=== PATIENT | male | born 1955 | race Two or more races ===

== ENCOUNTER 2019-12-21 09:15 | Inpatient (IN) | payer OTHER ==
[~2019-12-21] VITALS: Ht 170.2 cm; Wt 70.8 kg
[2019-12-21] MEDS ORDERED: TAMS0.4C PO (12:44)
[2019-12-21] MEDS ORDERED: PRILOSEC OTC20 MG PO (12:44)
== END 2019-12-30 12:45 | disposition home or self-care (01) | DRG 708 ==
LOC: O/R 12-28 06:10 → SURH 12-28 07:00 → SURG 12-28 14:11
PROVIDERS: ADMIT Urology; ATTEND Urology
PROC: 07TC0ZZ Resection of Pelvis Lymphatic, Open Approach (ICD-10-PCS; 2019-12-28)
PROC: 0VT00ZZ Resection of Prostate, Open Approach (ICD-10-PCS; principal; 2019-12-28 07:00)
DX: C61 Malignant neoplasm of prostate (principal); Z20.828 Contact with and (suspected) exposure to other viral communicable diseases

== ENCOUNTER 2020-01-13 11:49 | Outpatient (CLI) | payer OTHER ==
[~2020-01-13 11:49] MED LIST: PRILOSEC OTC20 MG PO; TAMS0.4C PO
== END 2020-01-13 12:02 | disposition home or self-care (01) ==
LOC: TOM 11:49
PROVIDERS: ATTEND Urology
DX: K40.90 Unilateral inguinal hernia, without obstruction or gangrene, not specified as recurrent (principal); C61 Malignant neoplasm of prostate; R31.0 Gross hematuria

== ENCOUNTER → 2020-01-25 | Outpatient (CLI) | payer OTHER | END | disposition home or self-care (01) | LOC: RX STUDY 11:07 | PROVIDERS: ATTEND Urology | DX: C61 Malignant neoplasm of prostate (principal); R53.83 Other fatigue ==

== ENCOUNTER → 2020-01-30 11:11 | Outpatient (CLI) | payer OTHER | END | disposition home or self-care (01) | LOC: LAB 11:11 | PROVIDERS: ATTEND Urology | DX: R73.09 Other abnormal glucose (principal); R31.1 Benign essential microscopic hematuria; E78.49 Other hyperlipidemia; E03.8 Other specified hypothyroidism; R10.10 Upper abdominal pain, unspecified ==

== ENCOUNTER 2023-05-21 11:45 | Outpatient (CLI) | payer OTHER | END 2023-05-21 11:48 | disposition home or self-care (01) | LOC: SONOGRAMA 11:45 | PROVIDERS: ATTEND Urology | DX: C61 Malignant neoplasm of prostate (principal); R31.1 Benign essential microscopic hematuria; R33.9 Retention of urine, unspecified ==